=== PATIENT | female | born 1950 | race Caucasian/White ===

== ENCOUNTER 2018-01-18 21:11 | Inpatient (IN) | payer MEDICARE, MEDICAID ==
[~2018-01-18] VITALS: Ht 157.5 cm; Wt 49.0 kg
[2018-01-18] MEDS ORDERED: MIRT15TA PO (21:27)
[2018-01-18] MEDS ORDERED: DIPH25CA83 PO (21:27)
[2018-01-18] MEDS ORDERED: CELE200C PO (21:27)
[2018-01-18] MEDS ORDERED: CHOL200026 PO (21:27)
[2018-01-18] MEDS ORDERED: FAMO-132 PO (21:27)
[2018-01-18] MEDS ORDERED: METO25TA6 PO (21:27)
[2018-01-18] MEDS ORDERED: ESCI10TA PO (21:27)
[2018-01-18] MEDS ORDERED: AMLO5TAB4 PO (21:27)
[2018-01-18] MEDS ORDERED: MULT-1094 PO (21:27)
[2018-01-18] MEDS ORDERED: ARIP10TA9 PO (21:27)
[2018-01-18] MEDS ORDERED: LORA-259 PO (21:27)
[2018-01-18] MEDS ORDERED: POTA20TA83 PO (21:27)
[2018-01-18] MEDS ORDERED: TEMA15CA5 PO (21:27)
[2018-01-18] MEDS ORDERED: ASPI-605 PO (21:27)
[2018-01-18] MEDS ORDERED: DOCU-141 PO (21:27)
[2018-01-18] MEDS ORDERED: MAG HYDROX/AL HYDROX/SIMETH 30 ML LIQUID UDC PO PRN (22:45)
[2018-01-19] MEDS ORDERED: MAGNESIUM HYDROXIDE 30 ML LIQUID UDC PO PRN (00:15)
[2018-01-19] MEDS ORDERED: OLANZAPINE 10 MG VIAL IM ONE ×2 (05:15→05:17)
[2018-01-19 07:32] LABS: BASOPHILS % (AUTO) 0.4 % (0.0-2.0); EOSINOPHILS # (AUTO) 0.1 K/uL (0.0-0.7); EOSINOPHILS % (AUTO) 1.9 % (0.0-7.0); HEMATOCRIT 35.7 % (31.2-41.9); HEMOGLOBIN 11.8 g/dL (10.9-14.3); LYMPHOCYTES % (AUTO) 27.2 % (20.5-51.5); MEAN CORPUSCULAR HEMOGLOBIN 28.9 uug (24.7-32.8); MEAN CORPUSCULAR HGB CONC 33 g/dL (32.3-35.6); MEAN CORPUSCULAR VOLUME 87.1 fL (75.5-95.3); MONOCYTES # (AUTO) 0.7 K/uL (2.0-10.0); MONOCYTES % (AUTO) 9.3 % (0.0-11.0); NEUTROPHILS # (AUTO) 4.6 K/uL (1.8-8.9); NEUTROPHILS % (AUTO) 61.2 % (38.5-71.5); PLATELET COUNT (AUTO) 163 K/uL (179-408); RED BLOOD CELL COUNT(AUTO) 4.09 MIL/uL (3.63-4.92); WHITE BLOOD COUNT (AUTO) 7.5 K/uL (3.8-11.8)
[2018-01-19 07:41] LABS: ETHANOL < 3 MG/DL (0-0)
[2018-01-19 07:48] LABS: ALANINE AMINOTRANSFERASE 18 U/L (14-59); ALKALINE PHOSPHATASE 99 U/L (50-136); ASPARTATE AMINOTRANSFERASE 16 U/L (15-37); BILIRUBIN,DIRECT 0.1 mg/dL (0.0-0.2); BILIRUBIN,TOTAL 0.3 mg/dL (0.2-1.0); CARBON DIOXIDE 26 mmol/L (21-32); CHLORIDE 106 mmol/L (98-107); CREATININE 1.2 mg/dL (0.6-1.3); GLUCOSE 211 mg/dL (74-106); POTASSIUM 3.7 mmol/L (3.5-5.1); TOTAL PROTEIN, SERUM 6.2 g/dL (6.4-8.2); UREA NITROGEN, BLOOD 28 mg/dL (7-18)
[2018-01-19 07:49] LABS: ACETAMINOPHEN < 2.0 ug/mL (10-30)
[2018-01-19 08:09] LABS: THYROID STIMULATING HORMONE 1.927 mIU/mL (0.358-3.740)
[2018-01-19] MEDS ORDERED: DIPHENHYDRAMINE HCL 50 MG PO PRN (10:00)
[2018-01-19 16:34] VITALS: BP 150/65
[2018-01-19] MEDS: ACETAMINOPHEN 325 MG TABLET PO PRN (16:59)
[2018-01-19] MEDS: HALOPERIDOL 1 MG TABLET PO SCH (17:00)
[2018-01-19] MEDS: DOCUSATE SODIUM 100 MG CAPSULE PO SCH (17:00)
[2018-01-19] MEDS: BENZTROPINE MESYLATE 0.5 MG TABLET PO SCH (17:00)
[2018-01-19 20:15] VITALS: BP 164/89
[2018-01-19 20:58] VITALS: BP 159/89
[2018-01-19] MEDS: METOPROLOL TARTRATE 25 MG TABLET PO SCH (20:58)
[2018-01-20] MEDS: TEMAZEPAM 7.5 MG CAPSULE PO PRN ×2 (00:42→21:05)
[2018-01-20 07:30] VITALS: BP 173/92
[2018-01-20] MEDS ORDERED: Medication Not On Formulary EA (Cholecalciferol (Vitamin D3) (Vitamin D3 TAB) 2,000 UNIT PO SCH (09:00)
[2018-01-20] MEDS: ASPIRIN EC 81 MG TABLET.DR PO SCH (09:10)
[2018-01-20] MEDS: HALOPERIDOL 1 MG TABLET PO SCH (09:10)
[2018-01-20] MEDS: FAMOTIDINE 20 MG TABLET PO SCH (09:11)
[2018-01-20] MEDS: CHOLECALCIFEROL 1,000 UNIT TABLET PO SCH (09:11)
[2018-01-20] MEDS: AMLODIPINE 5 MG TABLET PO SCH (09:12)
[2018-01-20] MEDS: CELECOXIB 200 MG CAPSULE PO SCH (09:12)
[2018-01-20] MEDS: DOCUSATE SODIUM 100 MG CAPSULE PO SCH ×2 (09:13→18:45)
[2018-01-20] MEDS: BENZTROPINE MESYLATE 0.5 MG TABLET PO SCH ×3 (09:13→18:45)
[2018-01-20] MEDS: POTASSIUM CHLORIDE 20 MEQ TAB.PRT.SR PO SCH (09:13)
[2018-01-20] MEDS: MULTIVIT, IRON, MIN NO. 8, FA TABLET PO SCH (09:14)
[2018-01-20] MEDS: METOPROLOL TARTRATE 25 MG TABLET PO SCH ×2 (09:14→21:05)
[2018-01-20] MEDS: HALOPERIDOL 2 MG TABLET PO SCH ×2 (12:45→18:45)
[2018-01-20] MEDS: ACETAMINOPHEN 325 MG TABLET PO PRN (14:35)
[2018-01-20] MEDS: LORAZEPAM 0.5 MG TABLET PO PRN (14:35)
[2018-01-20 19:51] VITALS: BP 149/68
[2018-01-20] MEDS: ATORVASTATIN 10 MG TABLET PO SCH (21:05)
[2018-01-21 07:30] VITALS: BP 150/92
[2018-01-21] MEDS: LORAZEPAM 0.5 MG TABLET PO PRN ×2 (07:56→16:43)
[2018-01-21] MEDS: diphenhydrAMINE 50 MG CAPSULE PO PRN (07:56)
[2018-01-21] MEDS: MULTIVIT, IRON, MIN NO. 8, FA TABLET PO SCH (08:08)
[2018-01-21] MEDS: ASPIRIN EC 81 MG TABLET.DR PO SCH (08:08)
[2018-01-21] MEDS: FAMOTIDINE 20 MG TABLET PO SCH (08:08)
[2018-01-21] MEDS: CELECOXIB 200 MG CAPSULE PO SCH (08:08)
[2018-01-21] MEDS: HALOPERIDOL 2 MG TABLET PO SCH ×3 (08:08→16:44)
[2018-01-21] MEDS: BENZTROPINE MESYLATE 0.5 MG TABLET PO SCH ×3 (08:08→16:43)
[2018-01-21] MEDS: DOCUSATE SODIUM 100 MG CAPSULE PO SCH ×2 (08:08→16:43)
[2018-01-21] MEDS: CHOLECALCIFEROL 1,000 UNIT TABLET PO SCH (08:08)
[2018-01-21] MEDS: POTASSIUM CHLORIDE 20 MEQ TAB.PRT.SR PO SCH (08:08)
[2018-01-21] MEDS: AMLODIPINE 5 MG TABLET PO SCH (08:09)
[2018-01-21] MEDS: METOPROLOL TARTRATE 25 MG TABLET PO SCH ×2 (08:09→21:00)
[2018-01-21] MEDS ORDERED: HALOPERIDOL 2 MG TABLET PO PRN (10:45)
[2018-01-21] MEDS: DIVALPROEX SPRINKLE 125 MG CAP.SPRINK PO SCH ×2 (12:15→20:58)
[2018-01-21 14:31] LABS: *BILIRUBIN,URIN NEGATIVE (NEGATIVE); *BLOOD, URINE 1+ (NEGATIVE); *CLARITY,URINE CLOUDY (CLEAR); *COLOR,URINE YELLOW (YELLOW); *KETONES,URINE NEGATIVE (NEGATIVE); *UROBILINOGEN,URINE 0.2 E.U./dl (NORMAL); LEUKOCYTE ESTERASE ,URINE 2+ (NEGATIVE); NITRITE, URINE NEGATIVE (NEGATIVE); PH,URINE 7.5 (5.0-8.0); UGLUCOSE NEGATIVE (NEGATIVE)
[2018-01-21 14:49] LABS: *PROTEIN,URINE 3+ (NEGATIVE)
[2018-01-21 14:51] LABS: BACTERIA,URINE MANY /HPF (NONE SEEN); SQUAMOUS EPITHELIAL CELL,UR FEW /HPF (NONE SEEN); WBC,URINE TNTC /HPF (0-3)
[2018-01-21 16:17] VITALS: BP 152/77
[2018-01-21 19:56] VITALS: BP 133/63
[2018-01-21] MEDS: ATORVASTATIN 10 MG TABLET PO SCH (20:58)
[2018-01-21] MEDS: TEMAZEPAM 7.5 MG CAPSULE PO PRN (20:58)
[2018-01-21] MEDS: CEPHALEXIN MONOHYDRATE 500 MG CAPSULE PO SCH (23:02)
[2018-01-22 07:30] VITALS: BP 151/97
[2018-01-22] MEDS: diphenhydrAMINE 50 MG CAPSULE PO PRN (07:31)
[2018-01-22] MEDS: LORAZEPAM 0.5 MG TABLET PO PRN ×2 (07:31→16:18)
[2018-01-22] MEDS: CHOLECALCIFEROL 1,000 UNIT TABLET PO SCH (08:17)
[2018-01-22] MEDS: MULTIVIT, IRON, MIN NO. 8, FA TABLET PO SCH (08:17)
[2018-01-22] MEDS: DOCUSATE SODIUM 100 MG CAPSULE PO SCH ×2 (08:17→16:18)
[2018-01-22] MEDS: CEPHALEXIN MONOHYDRATE 500 MG CAPSULE PO SCH ×2 (08:17→16:18)
[2018-01-22] MEDS: DIVALPROEX SPRINKLE 125 MG CAP.SPRINK PO SCH ×3 (08:17→20:04)
[2018-01-22] MEDS: CELECOXIB 200 MG CAPSULE PO SCH (08:17)
[2018-01-22] MEDS: FAMOTIDINE 20 MG TABLET PO SCH (08:17)
[2018-01-22] MEDS: POTASSIUM CHLORIDE 20 MEQ TAB.PRT.SR PO SCH (08:17)
[2018-01-22] MEDS: AMLODIPINE 5 MG TABLET PO SCH (08:17)
[2018-01-22] MEDS: ASPIRIN EC 81 MG TABLET.DR PO SCH (08:17)
[2018-01-22] MEDS: BENZTROPINE MESYLATE 0.5 MG TABLET PO SCH ×3 (08:18→16:18)
[2018-01-22] MEDS: METOPROLOL TARTRATE 25 MG TABLET PO SCH ×2 (08:18→20:05)
[2018-01-22] MEDS: HALOPERIDOL 2 MG TABLET PO SCH (08:18)
[2018-01-22] MEDS: HALOPERIDOL 5 MG TABLET PO SCH ×2 (12:40→16:18)
[2018-01-22 16:03] VITALS: BP 156/78
[2018-01-22 20:00] VITALS: BP 151/67
[2018-01-22] MEDS: ATORVASTATIN 10 MG TABLET PO SCH (20:03)
[2018-01-22] MEDS: ACETAMINOPHEN 325 MG TABLET PO PRN (20:23)
[2018-01-22] MEDS: TEMAZEPAM 7.5 MG CAPSULE PO PRN (22:52)
[2018-01-23 07:30] VITALS: BP 127/57
[2018-01-23] MEDS ORDERED: INSULIN REGULAR, HUMAN 300 UNITS/3 ML VIAL SQ PRN (07:45)
[2018-01-23] MEDS ORDERED: DEXTROSE 50% 50 ML DISP.SYRIN IV PRN (07:45)
[2018-01-23] MEDS: LORAZEPAM 0.5 MG TABLET PO PRN (08:08)
[2018-01-23] MEDS: diphenhydrAMINE 50 MG CAPSULE PO PRN (08:08)
[2018-01-23] MEDS: CELECOXIB 200 MG CAPSULE PO SCH (08:09)
[2018-01-23] MEDS: MULTIVIT, IRON, MIN NO. 8, FA TABLET PO SCH (08:09)
[2018-01-23] MEDS: DOCUSATE SODIUM 100 MG CAPSULE PO SCH ×2 (08:09→16:10)
[2018-01-23] MEDS: DIVALPROEX SPRINKLE 125 MG CAP.SPRINK PO SCH ×3 (08:09→20:39)
[2018-01-23] MEDS: CHOLECALCIFEROL 1,000 UNIT TABLET PO SCH (08:09)
[2018-01-23] MEDS: ASPIRIN EC 81 MG TABLET.DR PO SCH (08:09)
[2018-01-23] MEDS: CEPHALEXIN MONOHYDRATE 500 MG CAPSULE PO SCH ×2 (08:09→16:10)
[2018-01-23] MEDS: POTASSIUM CHLORIDE 20 MEQ TAB.PRT.SR PO SCH (08:09)
[2018-01-23] MEDS: HALOPERIDOL 5 MG TABLET PO SCH ×4 (08:09→20:40)
[2018-01-23] MEDS: BENZTROPINE MESYLATE 0.5 MG TABLET PO SCH ×3 (08:09→16:10)
[2018-01-23] MEDS: METOPROLOL TARTRATE 25 MG TABLET PO SCH ×2 (08:10→21:00)
[2018-01-23] MEDS: FAMOTIDINE 20 MG TABLET PO SCH (08:10)
[2018-01-23] MEDS: AMLODIPINE 5 MG TABLET PO SCH (08:10)
[2018-01-23] MEDS: BLOOD SUGAR DIAGNOSTIC 1 EACH STRIP VI SCH ×3 (11:30→21:40)
[2018-01-23 15:29] VITALS: BP 127/59
[2018-01-23] MEDS: INSULIN REGULAR, HUMAN 300 UNIT/3 ML VIAL SQ PRN (16:55)
[2018-01-23 20:29] VITALS: BP 101/59
[2018-01-23] MEDS: ATORVASTATIN 10 MG TABLET PO SCH (20:39)
[2018-01-23] MEDS: TEMAZEPAM 7.5 MG CAPSULE PO PRN (22:36)
[2018-01-24] MEDS: LORAZEPAM 0.5 MG TABLET PO PRN ×2 (01:31→16:06)
[2018-01-24] MEDS: BLOOD SUGAR DIAGNOSTIC 1 EACH STRIP VI SCH ×4 (07:27→21:00)
[2018-01-24] MEDS: INSULIN REGULAR, HUMAN 300 UNIT/3 ML VIAL SQ PRN ×2 (07:40→11:37)
[2018-01-24 07:48] LABS: BASOPHILS % (AUTO) 0.5 % (0.0-2.0); EOSINOPHILS # (AUTO) 0.2 K/uL (0.0-0.7); EOSINOPHILS % (AUTO) 3.7 % (0.0-7.0); HEMATOCRIT 36.3 % (31.2-41.9); LYMPHOCYTES # (AUTO) 1.8 K/uL (20.0-40.0); LYMPHOCYTES % (AUTO) 34.8 % (20.5-51.5); MEAN CORPUSCULAR HEMOGLOBIN 28.9 uug (24.7-32.8); MEAN CORPUSCULAR HGB CONC 33 g/dL (32.3-35.6); MEAN CORPUSCULAR VOLUME 87.6 fL (75.5-95.3); MONOCYTES # (AUTO) 0.6 K/uL (2.0-10.0); MONOCYTES % (AUTO) 11.7 % (0.0-11.0); NEUTROPHILS # (AUTO) 2.5 K/uL (1.8-8.9); NEUTROPHILS % (AUTO) 49.3 % (38.5-71.5); PLATELET COUNT (AUTO) 180 K/uL (179-408); RED BLOOD CELL COUNT(AUTO) 4.15 MIL/uL (3.63-4.92); WHITE BLOOD COUNT (AUTO) 5.1 K/uL (3.8-11.8)
[2018-01-24] MEDS: HALOPERIDOL 5 MG TABLET PO SCH ×4 (08:04→21:00)
[2018-01-24] MEDS: CELECOXIB 200 MG CAPSULE PO SCH (08:04)
[2018-01-24] MEDS: CHOLECALCIFEROL 1,000 UNIT TABLET PO SCH (08:05)
[2018-01-24] MEDS: POTASSIUM CHLORIDE 20 MEQ TAB.PRT.SR PO SCH (08:05)
[2018-01-24] MEDS: BENZTROPINE MESYLATE 0.5 MG TABLET PO SCH ×3 (08:05→16:06)
[2018-01-24] MEDS: DOCUSATE SODIUM 100 MG CAPSULE PO SCH ×2 (08:05→16:05)
[2018-01-24] MEDS: MULTIVIT, IRON, MIN NO. 8, FA TABLET PO SCH (08:05)
[2018-01-24] MEDS: FAMOTIDINE 20 MG TABLET PO SCH (08:05)
[2018-01-24] MEDS: ASPIRIN EC 81 MG TABLET.DR PO SCH (08:05)
[2018-01-24] MEDS: CEPHALEXIN MONOHYDRATE 500 MG CAPSULE PO SCH ×2 (08:05→16:05)
[2018-01-24] MEDS: DIVALPROEX SPRINKLE 125 MG CAP.SPRINK PO SCH ×3 (08:05→21:07)
[2018-01-24] MEDS: METOPROLOL TARTRATE 25 MG TABLET PO SCH ×2 (08:06→21:06)
[2018-01-24] MEDS: AMLODIPINE 5 MG TABLET PO SCH (08:06)
[2018-01-24 08:13] LABS: BILIRUBIN,TOTAL 0.3 mg/dL (0.2-1.0); CREATININE 1.6 mg/dL (0.6-1.3); POTASSIUM 4.6 mmol/L (3.5-5.1); TOTAL PROTEIN, SERUM 5.9 g/dL (6.4-8.2)
[2018-01-24 16:00] VITALS: BP 124/65
[2018-01-24 20:00] VITALS: BP 100/69
[2018-01-24] MEDS: ATORVASTATIN 10 MG TABLET PO SCH (21:00)
[2018-01-25] MEDS: BLOOD SUGAR DIAGNOSTIC 1 EACH STRIP VI SCH (06:53)
[2018-01-25 07:30] VITALS: BP 134/52
[2018-01-25] MEDS: ASPIRIN EC 81 MG TABLET.DR PO SCH (09:08)
[2018-01-25] MEDS: DIVALPROEX SPRINKLE 125 MG CAP.SPRINK PO SCH (09:08)
[2018-01-25] MEDS: DOCUSATE SODIUM 100 MG CAPSULE PO SCH (09:08)
[2018-01-25] MEDS: HALOPERIDOL 5 MG TABLET PO SCH (09:08)
[2018-01-25] MEDS: BENZTROPINE MESYLATE 0.5 MG TABLET PO SCH (09:08)
[2018-01-25] MEDS: CEPHALEXIN MONOHYDRATE 500 MG CAPSULE PO SCH (09:09)
[2018-01-25] MEDS: METOPROLOL TARTRATE 25 MG TABLET PO SCH (09:09)
[2018-01-25 09:10] VITALS: BP 134/52
[2018-01-25] MEDS: AMLODIPINE 5 MG TABLET PO SCH (09:10)
[2018-01-25] MEDS: FAMOTIDINE 20 MG TABLET PO SCH (09:10)
[2018-01-25] MEDS: MULTIVIT, IRON, MIN NO. 8, FA TABLET PO SCH (09:10)
[2018-01-25] MEDS: CHOLECALCIFEROL 1,000 UNIT TABLET PO SCH (09:12)
[2018-01-25] MEDS ORDERED: LACTOBACILLUS RHAMNOSUS GG 1 EACH CAPSULE PO SCH (11:00)
== END 2018-01-25 11:15 | DRG 885 ==
LOC: ER 21:15 → GPS 21:54
PROVIDERS: ADMIT Psychiatry & Neurology Psychosomatic Medicine; ATTEND Hospitalist
DX: F25.0 Schizoaffective disorder, bipolar type (principal); E43 Unspecified severe protein-calorie malnutrition; N17.9 Acute kidney failure, unspecified; D69.6 Thrombocytopenia, unspecified; J44.9 Chronic obstructive pulmonary disease, unspecified; E11.65 Type 2 diabetes mellitus with hyperglycemia; G30.9 Alzheimer's disease, unspecified; F02.81 Dementia in other diseases classified elsewhere, unspecified severity, with behavioral disturbance; N39.0 Urinary tract infection, site not specified; Z68.1 Body mass index [BMI] 19.9 or less, adult; F20.0 Paranoid schizophrenia; Z91.14 Patient's other noncompliance with medication regimen; M19.90 Unspecified osteoarthritis, unspecified site; Z79.82 Long term (current) use of aspirin; Z79.899 Other long term (current) drug therapy; E78.5 Hyperlipidemia, unspecified; K21.9 Gastro-esophageal reflux disease without esophagitis; B96.20 Unspecified Escherichia coli [E. coli] as the cause of diseases classified elsewhere; I10 Essential (primary) hypertension; M79.642 Pain in left hand
CPT/HCPCS: 36415; 70030-TC; 80164; 83605; 84443; 85025; 85730; 87040; 87077; 87086; 93005; A4663; G0480; G0480-TC; J1815; J2358; Q0163